=== PATIENT | female | born 1965 | race Caucasian/White ===

== ENCOUNTER 2016-06-02 20:21 | Emergency (ER) | payer MEDICARE, OTHER ==
[2016-06-03 04:54] LABS: HEMOGLOBIN 12.8 gm/dl (12.3-15.3); RED BLOOD COUNT 4.53 M/UL (4.00-5.10); WHITE BLOOD COUNT 11.7 K/UL (4.5-11.0)
[2016-06-03 05:07] LABS: BUN/CREATININE RATIO 23 (0-10)
== END 2016-06-03 06:00 | disposition home or self-care (01) ==
LOC: ER1 20:21
PROVIDERS: Emergency Medicine
DX: I87.2 Venous insufficiency (chronic) (peripheral) (principal); E11.9 Type 2 diabetes mellitus without complications; F17.210 Nicotine dependence, cigarettes, uncomplicated
CPT/HCPCS: 36415; 71010; 80053; 83880; 84484; 85025; 99283

== ENCOUNTER 2020-10-31 15:27 | Emergency (ER) | payer MEDICARE ==
[2020-10-31 17:50] LABS: HEMOGLOBIN 10.9 gm/dl (12.3-15.3); RED BLOOD COUNT 4.15 M/UL (4.00-5.10); WHITE BLOOD COUNT 6.8 K/UL (4.5-11.0)
== END 2020-10-31 20:18 | disposition home or self-care (01) ==
LOC: ER1 15:27
PROVIDERS: Physician Assistant
DX: L03.115 Cellulitis of right lower limb (principal); I10 Essential (primary) hypertension; F17.210 Nicotine dependence, cigarettes, uncomplicated
CPT/HCPCS: 80053; 85025; 99284